=== PATIENT | female | born 1960 ===

== ENCOUNTER 2020-09-02 11:28 | Day surgery (SDC) | payer OTHER ==
[~2020-09-02 11:28] MED LIST: ATACAND32 MG PO; CALTRATE 600 +1 EACH PO; D3 + K2 DOTS 11 EACH PO; SYNTHROID88 MCG PO
[2020-09-02] MEDS ORDERED: KETO10TA2 PO (17:26)
[2020-09-02] MEDS ORDERED: CODE1TAB37 PO (17:27)
== END 2020-09-02 20:00 | disposition home or self-care (01) ==
LOC: CIR.AMB 11:28
PROVIDERS: ATTEND Obstetrics & Gynecology
DX: N83.292 Other ovarian cyst, left side (principal); N73.6 Female pelvic peritoneal adhesions (postinfective); Z20.822 Contact with and (suspected) exposure to COVID-19